=== PATIENT | female | born 1965 | race Caucasian/White ===

== ENCOUNTER 2023-12-09 13:57 | Outpatient (REF) | payer MEDICARE, MEDICAID, SELFPAY ==
--- NOTE | ~2023-12-09 | MM_ITS ---
EXAMINATION: MM DIAGNOSTIC DIGITAL BREAST TOMOSYNTHESIS, BILATERAL CLINICAL INFORMATION: Patient complaining of left breast hardness retroareolar region and upper lateral aspect x 3 months. Patient here for bilateral screening as well. COMPARISON: Mammography: 07/30/2021, 04/11/2017, 09/11/2014 ([facility]). TECHNIQUE: Digital breast tomosynthesis is performed in both the craniocaudal and mediolateral oblique views along with computer-aided detection (CAD). Synthesized 2D images are generated from the tomosynthesis. In addition, 3-D spot compression left CC and left MLO views were also obtained of the region of palpable concern as directed by the patient. FINDINGS: The breasts are heterogeneously dense, which may obscure small masses (ACR BI-RADS breast composition Category c). Within the right breast, there are at least 3 oval circumscribed low-density masses along the posteroinferior parenchymal cone region. Within the left breast, there are a few subcentimeter oval circumscribed masses as well. Taken in entirety, these findings are consistent with small bilateral cysts. No evidence of parenchymal distortion, dominant mass, or suspicious calcifications. There are rare scattered parenchymal calcifications in both breasts. In particular there is no dominant mass or suspicious abnormality which can be distinguished accurately and definitively from the heterogeneously dense breast parenchyma. There is no left nipple or periareolar contraction or thickening. There is no skin thickening or axillary abnormality in either breast. Spot compression views of the left breast upper outer quadrant show a ridge of dense fibrocystic tissue without additional underlying mass or other suspicious abnormality. This may be what the patient is feeling. Patient is scheduled for ultrasound to be performed 12/21/2023. MM/MM tomosynthesis diagnostic BI IMPRESSION: -There are no findings suspicious for malignancy in either breast. -There is heterogeneously dense and probable fibrocystic breast tissue present bilaterally, similar to prior exams. -No mammographic mass or suspicious abnormality in the region of palpable concern. A ridge of dense tissue is present in this region which may be what the patient is feeling. Targeted left breast ultrasound is required and the patient is scheduled for left breast ultrasound 12/21/2023. ASSESSMENT: BI-RADS BI-RADS 0 - Incomplete: Needs additional Imaging. RECOMMENDATION: Additional Imaging required
== END 2023-12-09 13:58 | disposition home or self-care (01) ==
LOC: HO.MAMMO 13:57
PROVIDERS: PCP Internal Medicine; Visit Provider Internal Medicine
DX: N63.25 Unspecified lump in the left breast, overlapping quadrants (principal)
CPT/HCPCS: 77062; 77066

== ENCOUNTER → 2023-12-09 14:00 | Outpatient (BNV) | payer MEDICARE, MEDICAID, SELFPAY | PROVIDERS: PCP Internal Medicine; Visit Provider Radiology Diagnostic Radiology | DX: Z12.31 Encounter for screening mammogram for malignant neoplasm of breast (principal) | CPT/HCPCS: 77063; 77067 ==